=== PATIENT | female | born 1940 ===

== ENCOUNTER 2019-12-07 06:55 | Inpatient (IN) ==
[2019-12-07 08:01] LABS: Basophils % 0.2 %; Eosinophils % 0.2 %; Hematocrit 41.9 % (35.3-44.9); Hemoglobin 13.5 g/dL (11.5-15.4); Immature Granulocytes % 0.7 % (0-4); Lymphocytes # 0.5 K/mcL (0.6-4.6); Lymphocytes % 2.4 %; Mean Corpuscular HGB Conc 32.2 g/dL (31.6-35.5); Mean Corpuscular Hemoglobin 28.6 pg (28.0-33.3); Mean Corpuscular Volume 88.8 fL (83.0-100.0); Mean Platelet Volume 11.5 fL (9.4-12.4); Monocytes # 0.9 K/mcL (0.0-1.3); Platelet Count 271 K/mcL (140-400); Red Blood Count 4.72 M/mcL (3.82-4.97); Red Cell Distribution Width 14.5 % (11.5-14.5); Segmented Neutrophils % 92.5 %; White Blood Count 21.6 K/mcL (4.3-11.1)
[2019-12-07 08:15] LABS: INR 1.1; Prothrombin Time 12.8 Seconds (9.4-12.1)
[2019-12-07 08:19] LABS: Albumin 3.2 g/dL (3.5-5.7); Albumin/Globulin Ratio 0.8 (1.1-2.2); Bilirubin,Total 0.8 mg/dL (0.3-1.0); Calcium 8.9 mg/dL (8.6-10.3); Globulin 4.2 g/dL (2.4-3.5); Magnesium 1.2 mg/dL (1.6-2.6); Potassium 3.6 mEq/L (3.5-5.1); Total Protein 7.4 g/dL (6.4-8.9)
[2019-12-07] MEDS ORDERED: cefTRIAXone 1,000 MG in 0.9 % Sodium Chloride Mini Bag 100 ML IVPB ONE (08:20)
[2019-12-07] MEDS ORDERED: Azithromycin 500 MG in 0.9 % Sodium Chloride 250 ML IVPB ONE (08:20)
[2019-12-07 09:32] LABS: Bilirubin,Urine Negative (Negative); Blood,Urine Moderate (Negative); Clarity,Urine Slightly Cloudy (Clear); Color,Urine Yellow (Yellow); Glucose,Urine (UA) 100 mg/dL (Normal); Ketones,Urine Trace mg/dL (Negative); Leukocyte Esterase,Urine Small (Negative); Nitrite,Urine Positive (Negative); Protein,Urine Negative (Neg-Trace); Specific Gravity,Urine 1.025 (1.010-1.025); Urobilinogen,Urine Normal (Normal)
[2019-12-07 09:40] LABS: Bacteria,Urine Many per hpf (None-Few); Squamous Epithelial Cell,Urine Few per lpf (None-Few); WBC,Urine 15-30 per hpf (0-3)
[2019-12-07 09:41] LABS: Mucus,Urine Few per lpf (Few)
[2019-12-07] MEDS ORDERED: Mag Hydrox/Al Hydrox/Simeth 30 ML UDC PO PRN (10:04)
[2019-12-07] MEDS ORDERED: MOM Conc 10 ML UD.LIQ PO PRN (10:04)
[2019-12-07] MEDS ORDERED: Ondansetron 4 MG/2 ML VIAL IVP PRN (10:04)
[2019-12-07] MEDS ORDERED: Naloxone 0.4 MG/ML INJ IVP PRN (10:04)
[2019-12-07] MEDS ORDERED: Azithromycin 500 MG in 0.9 % Sodium Chloride 250 ML IVPB SCH (11:00)
[2019-12-07] MEDS: 0.9 % Sodium Chloride 1,000 ML IVC SCH ×2 (11:29→15:06)
[2019-12-07] MEDS ORDERED: Nystatin POWDER 30 GM BOTTLE TP SCH (13:13)
[2019-12-07] MEDS ORDERED: Dextrose Gel 15 GM/37.5 ML TUBE PO PRN ×2 (14:19)
[2019-12-07] MEDS ORDERED: *HR* Dextrose 50 % in Water (Syg) 50 ML SYRINGE IVP PRN (14:19)
[2019-12-07] MEDS ORDERED: D5% in Water 1,000 ML IVC PRN (14:19)
[2019-12-07] MEDS ORDERED: *HR* Dextrose 50 % in Water (Vial) 50 ML VIAL IVP PRN (14:30)
[2019-12-07 15:14] VITALS: BP 105/64
[2019-12-07] MEDS ORDERED: *HR* Heparin 5,000 UNIT/ML VIAL SQ SCH (16:00)
[2019-12-07] MEDS ORDERED: Insulin LISPRO 300 UNITS/3 ML VIAL SQ SCH ×2 (16:30→21:00)
[2019-12-07] MEDS ORDERED: Insulin DETEMIR 100 UNIT/ML X5UNITS SQ SCH (21:00)
[2019-12-08 03:50] LABS: Acinetobacter baumannii by PCR Not Detected (Not Detect); Candida albicans by PCR Not Detected (Not Detect); Candida glabrata by PCR Not Detected (Not Detect); Candida krusei by PCR Not Detected (Not Detect); Candida parapsilosis by PCR Not Detected (Not Detect); Candida tropicalis by PCR Not Detected (Not Detect); Enterobacter cloacae Cmplx PCR Not Detected (Not Detect); Enterobacteriaceae by PCR Not Detected (Not Detect); Enterococcus by PCR Not Detected (Not Detect); Escherichia coli by PCR Not Detected (Not Detect); Klebsiella oxytoca by PCR Not Detected (Not Detect); Klebsiella pneumoniae by PCR Not Detected (Not Detect); Proteus by PCR Not Detected (Not Detect); Pseudomonas aeruginosa by PCR DETECTED (Not Detect); Serratia marcescens by PCR Not Detected (Not Detect); Staphylococcus aureus by PCR Not Detected (Not Detect); Staphylococcus by PCR Not Detected (Not Detect); Streptococcus agalactiae(B)PCR Not Detected (Not Detect); Streptococcus by PCR Not Detected (Not Detect); Streptococcus pneumoniae PCR Not Detected (Not Detect); Streptococcus pyogenes (A) PCR Not Detected (Not Detect); blaKPC Carbapenem-Resist Gene Not Detected (Not Detect); mecA Methicillin-Resist Gene Not Detected (Not Detect); vanA/B Vancomycin-Resist Genes Not Detected (Not Detect)
[2019-12-08] MEDS ORDERED: cefTRIAXone 1,000 MG in 0.9 % Sodium Chloride Mini Bag 100 ML IVPB SCH (09:00)
[2019-12-09 14:27] LABS: Mycoplasma pneumoniae IgG 0.36 U/L (<=0.09)
== END 2019-12-07 17:02 | disposition short-term general hospital (02) | DRG 871 ==
LOC: INPPIK 06:55 → EMEROOPIK 06:55 → INPPIK 09:54
PROVIDERS: ADMIT Family Medicine; ATTEND Family Medicine